=== PATIENT | female | born 1970 | race Caucasian/White ===

== ENCOUNTER 2017-11-04 09:01 | Emergency (ER) | payer MEDICAID ==
[~2017-11-04] VITALS: Ht 157.5 cm; Wt 49.6 kg
[~2017-11-04 09:01] MED LIST: DOCU-28 PO; IBUP-1986 PO; MAGN400T6 PO; OXYC-145 PO
[2017-11-04] MEDS ORDERED: TOBR5DRO2 RIGHTEYE (09:09)
[2017-11-04 09:23] VITALS: BP 125/89
== END 2017-11-04 09:24 | disposition home or self-care (01) ==
LOC: ER 09:02
DX: B99.9 Unspecified infectious disease (principal); H10.89 Other conjunctivitis; Z88.1 Allergy status to other antibiotic agents; Z88.8 Allergy status to other drugs, medicaments and biological substances; Z79.899 Other long term (current) drug therapy
CPT/HCPCS: 99283